=== PATIENT | male | born 1960 ===

== ENCOUNTER 2018-08-26 15:44 | Inpatient (IN) | payer MEDICAID, OTHER ==
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
[2018-08-26 16:27] LABS: ABS Basophils 0 10^3/ul (0-0.2); ABS Eosinophils 0.4 10^3/ul (0-0.6); ABS Lymphocytes 1.8 10^3/ul (1.0-4.8); ABS Monocytes 0.7 10^3/ul (0-0.8); ABS Neutrophils 5.3 10^3/ul (1.5-7.7); ABS Nucleated RBC 0 10^3/ul; Eosinophil % 4.4 %; Hematocrit 45 % (42-52); Hemoglobin 15.3 g/dl (14.0-18.0); Lymphocyte % 22.1 %; Mean Corpuscular HGB Conc 34 g/dl (31-36); Mean Corpuscular Hemoglobin 32 pg (27-31); Mean Corpuscular Volume 94 fL (80-94); Mean Platelet Volume 8.5 fL (7.4-10.4); Nucleated Red Blood Cells % 0; Platelet Count 207 10^3/ul (150-450); Red Blood Count 4.78 10^6/ul (4.00-5.40); Red Cell Distribution Width 13 % (10.5-15); White Blood Count 8.1 10^3/ul (3.5-10.8)
[2018-08-26 16:40] LABS: INR 0.97 (0.77-1.02)
[2018-08-26 16:45] LABS: EGFR Non-African American 107.9 (>60)
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
[2018-08-26] MEDS: Metoprolol Tartrate TAB* 25 MG PO SCH (22:09)
[2018-08-26 22:39] LABS: Urine Appearance Clear; Urine Blood Negative (Negative); Urine Color Yellow; Urine Ketones Negative (Negative); Urine Protein Negative (Negative); Urine Specific Gravity 1.006 (1.010-1.030); Urine Urobilinogen Negative (Negative)
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
[2018-08-27] MEDS: Metoprolol Tartrate TAB* 25 MG PO SCH (08:22)
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
[2018-08-27] MEDS ORDERED: Gadoteridol* (CONTRAST) 279.3 MG/ML 10 ML IV ONE (11:01)
--- NOTE | 2018-08-27 14:02 | PN ---
Subjective Date of Service: 08/27/18 Length of Stay: 1 Days Neurology is following Mr. Dalal for the evaluation and management of aphasia. Interval History: He continues to have word finding difficulty. No reported seizures. 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 There is some extension to the dura with associated dural thickening and enhancement. Review of Systems: Denied CP, SOB, or palpitations. Family History: Findings - unknown due to patient's poor communication +/= poor memory, comprehension. Social History: Findings - 2 children, not , has siblings. Patient could not answer meaningfully regarding SDM. Past Medical History: Findings - Lung cancer, RUL resection 2011. Smoker. Denies alcohol abuse Objective Active Medications: Metoprolol Tartrate (Lopressor Tab*) 25 mg PO BID BELLE Last Admin: 08/27/18 08:22 Dose: 25 mg Vital Signs 08/26/18 08/26/18 08/26/18 16:10 16:11 16:12 Temperature 98.1 F Pulse Rate 92 88 78 Respiratory 16 20 Rate Blood Pressure 137/94 137/94 (mmHg) O2 Sat by Pulse 96 97 97 Oximetry 08/26/18 08/26/18 08/26/18 16:35 16:41 17:25 Temperature 98.1 F Pulse Rate 93 86 Respiratory 14 18 Rate Blood Pressure 140/88 149/89 (mmHg) O2 Sat by Pulse 98 97 96 Oximetry 08/26/18 08/26/18 08/26/18 18:25 18:26 23:33 Temperature 98.3 F 99.1 F Pulse Rate 99 94 Respiratory 16 16 16 Rate Blood Pressure 152/88 112/69 (mmHg) O2 Sat by Pulse 100 94 Oximetry 08/27/18 08/27/18 08/27/18 07:22 08:00 11:36 Temperature 98.2 F 97.7 F Pulse Rate 105 86 Respiratory 16 16 16 Rate Blood Pressure 134/82 125/70 (mmHg) O2 Sat by Pulse 97 97 100 Oximetry Intake and Output Last 24 Hours 08/25/18 08/26/18 08/27/18 08/28/18 06:59 06:59 06:59 06:59 Intake Total 400 480 Output Total 0 Balance 400 480 Weight 168 lb 8 oz Intake: Oral 400 480 Output: Urine 0 Other: # Bowel Movements 0 Oxygen Devices in Use Now: None Neurology Exam: General: Well appearing man in no acute distress HEENT: Normocephalic/atraumatic, sclera anicteric, mucous membranes moist Neck: Supple Chest: Clear to auscultation bilaterally Cardiovascular: Regular rate and rhythm without murmurs, rubs, gallops Extremities: No clubbing, cyanosis, or edema Neurological Findings: Awake, oriented, and alert to self, place, and time. He has mild mixed aphasia (expressive>receptive). He was able to write without any difficulties. He has trouble repeating and with fluency but has some retained comprehension. Speech: fluent without dysrhythmia, repetition intact Cranial Nerve: PERRL, EOM-I, mild facial droop on the right. Motor: s/s throughout, proximal and distal extremities x4 tone/bulk normal Sensation: intact to LT/PP bilaterally upper and lower extremities Deep Tendon Reflex: 2+ symmetric in the upper/lower extremities, Babinski - down going Finger to nose, rapid alternating movements intact without tremor, no dysdiadochokinesia Gait: intact with good arm swing and stride Result Diagrams: 08/26/18 16:20 08/26/18 16:20 Microbiology and Other Data: Microbiology 08/27/18 00:05 Nasal Screen MRSA (PCR) - Final Nasal Mrsa Not Detected Assessment/Plan 1. 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 The history of lung cancer supports a metastatic lesion. Abscess is unlikely here given the history and the lack of restriction on DWI. Neurosurgery has been consulted. He has no seizures. The patient is able to communicate fairly well with writing and his comprehension seems slightly better today. Defer further management to the primary team and neurosurgery. Neurology will sign off but we are available for any questions or concerns.
[2018-08-27 15:40] VITALS: BP 115/73
--- NOTE | 2018-08-27 20:29 | EEG ---
ELECTROENCEPHALOGRAPHY: DATE OF SERVICE: 08/26/18 - ROOM #434 DATE READ: 08/27/18 DURATION OF STUDY: The EEG was recorded from [id number]. ORDERED BY: Ramo Do MD CLINICAL PROBLEM: Mr. Dalal is a 58-year-old man with history of lung cancer, who has a cystic brain mass on the left hemisphere. This EEG was obtained to evaluate for epileptiform abnormalities or electrographic seizure. Clinically, the patient has aphasia. MEDICATIONS: Lopressor. CLINICAL STATE: Awake. REPORT: This EEG showed an interhemispheric asymmetry over the left hemisphere. The background had some retained organization and discernible anterior-posterior voltage and frequency gradients. There was discernible posterior dominant rhythm of approximately 4 Hz. When the patient relaxed, there was a background consisting of mixed frequency 3-6 slowing in the theta and delta range that persisted throughout the end of the recording. Over the right hemisphere, there was normal waking background that showed appropriate organization with clearly defined anterior-posterior voltage and frequency gradients. There was a well-defined posterior dominant rhythm of 10 Hz, which was symmetrical and showed normal reactivity. Anteriorly, there was an expected pattern of lower voltage, irregular, mixed faster frequencies. This asymmetry persisted throughout the recording. Hyperventilation and photic stimulation were not performed. Single electrode EKG showed normal sinus rhythm with a rate of 70. Throughout the recording, there were no epileptiform discharges or electrographic seizures. CLINICAL IMPRESSION: This was an abnormal waking EEG due to interhemispheric asymmetry with slowing over the left hemisphere and retained normal background in the right hemisphere. There were no epileptiform abnormalities. These findings are suggestive of focal neuronal dysfunction involving the left hemisphere consistent with the patient's history of a left parietal mass. There were no epileptiform abnormalities or electrographic seizures. [id number]/[facility] #: [id number] [facility] CENTERCheo
== END 2018-08-27 17:03 | disposition short-term general hospital (02) | DRG 58 ==
LOC: ED 15:44 → MEDTELE 17:05 → EEVIPCON 17:05
PROVIDERS: ADMIT Internal Medicine; ATTEND Internal Medicine
PROC: 4A00X4Z Measurement of Central Nervous Electrical Activity, External Approach (ICD-10-PCS; principal; 2018-08-26)
DX: G93.9 Disorder of brain, unspecified (principal); G93.6 Cerebral edema; R47.01 Aphasia; J44.9 Chronic obstructive pulmonary disease, unspecified; K46.9 Unspecified abdominal hernia without obstruction or gangrene; G62.9 Polyneuropathy, unspecified; R29.703 NIHSS score 3; F17.200 Nicotine dependence, unspecified, uncomplicated; R53.1 Weakness; H54.61 Unqualified visual loss, right eye, normal vision left eye; Z85.118 Personal history of other malignant neoplasm of bronchus and lung; Z90.2 Acquired absence of lung [part of]; Z86.14 Personal history of Methicillin resistant Staphylococcus aureus infection
CPT/HCPCS: 36415; 70450; 70553; 71045; 71046; 74019; 80053; 80061; 81003; 83605; 84484; 85025; 85610; 85730; 87641; 93005; 95816; 99283; A9579